=== PATIENT | male | born 1970 | race Hispanic/Latino ===

== ENCOUNTER 2019-05-31 22:48 | Emergency (ER) | payer OTHER | END 2019-05-31 23:25 | LOC: EDH 22:48 | DX: Z02.83 Encounter for blood-alcohol and blood-drug test (principal) | CPT/HCPCS: 36415 ==

== ENCOUNTER 2020-01-04 13:26 | Emergency (ER) | payer OTHER, SELFPAY ==
[2020-01-04] MEDS ORDERED: AZITHROMYCIN 500MG+NS 250ML 250 ML IV ONE (15:40)
[2020-01-04] MEDS ORDERED: CEFTRIAXONE SODIUM 1 GM ONE (15:41)
[2020-01-04] MEDS ORDERED: SODIUM CHLORIDE 0.9% 1000ML 2,000 ML IV ONE (15:43)
[2020-01-04] MEDS ORDERED: ACETAMINOPHEN EXTRA STRENGTH 500 MG TABLET ONE (15:51)
[2020-01-04] MEDS ORDERED: ALBUTEROL INHALER 90MCG/INH IH ONE (15:55)
== END 2020-01-04 18:10 | disposition home or self-care (01) ==
LOC: EDH 13:26
DX: R50.9 Fever, unspecified (principal); R19.7 Diarrhea, unspecified; R05 Cough; R09.81 Nasal congestion; Z20.828 Contact with and (suspected) exposure to other viral communicable diseases
CPT/HCPCS: 36415; 71045; 80053; 82728; 84484; 85025; 85610; 85730; 86140; 87040 ×2; 87804 ×2; 87880; 93005; 96365; 96366; 96375; 99285; J0456; J0696; J7030; U0003